=== PATIENT | female | born 1930 | race Caucasian/White ===

== ENCOUNTER 2018-01-14 22:00 | Emergency (ER) | payer MEDICARE ==
[~2018-01-14] VITALS: Ht 157.5 cm; Wt 70.0 kg
[2018-01-14 22:02] VITALS: BP 196/82; PULSE 90; RESP 18; TEMP 98.3; O2SAT 98
[2018-01-14] MEDS ORDERED: TETANUS/DIPHTHERIA TOXOID ADULT 0.5 ML VIAL IM ONE (23:30)
--- NOTE | 2018-01-14 23:43 | RADRPT ---
EXAM DATE/TIME: 01/14/2018 23:26 [facility] COMPARISON: No previous studies available for comparison. INDICATIONS : Trauma, fell and hit head. RADIATION DOSE: 36.07 CTDIvol (mGy) MEDICAL HISTORY : Hypertension. Cerebrovascular disease. SURGICAL HISTORY : None. ENCOUNTER: Initial ACUITY: 1 day PAIN SCORE: 3/10 LOCATION: facial TECHNIQUE: Volumetric scanning of the facial bones was performed. Using automated exposure control and adjustme nt of the mA and/or kV according to patient size, radiation dose was kept as low as reasonably achiev able to obtain optimal diagnostic quality images. DICOM format image data is available [employer] y for review and comparison. FINDINGS: ORBITS: The orbital and infraorbital osseous structures are intact. The retroconal structures have a normal configuration. No radiopaque foreign bodies are seen. NASAL BONE: The nasal bone and maxillary spine are intact ZYGOMATIC ARCHES: Symmetric without evidence of fracture. SINUSES: The maxillary, ethmoid and frontal sinuses are intact. No air-fluid levels seen. NASAL CAVITY: The nasal septum is intact and midline. The lacrimal ducts are intact. SOFT TISSUES: There is soft tissue swelling around the right orbit and below the nose. INTRACRANIAL: No intracranial air seen. CRIBIFORM PLATE: Grossly intact. CONCLUSION: Facial soft tissue contusions. No fracture. Giuseppe Burns MD on January 14, 2018 at 23:41 Board Certified Radiologist. This report was verified electronically.
--- NOTE | 2018-01-14 23:53 | RADRPT ---
EXAM DATE/TIME: 01/14/2018 23:26 [facility] COMPARISON: No previous studies available for comparison. INDICATIONS : Trauma, fell and hit head. RADIATION DOSE: 49.75 CTDIvol (mGy) MEDICAL HISTORY : Hypertension. Cerebrovascular disease. On plavix. SURGICAL HISTORY : None. ENCOUNTER: Initial ACUITY: 1 day PAIN SCALE: 2/10 LOCATION: cranial TECHNIQUE: Multiple contiguous axial images were obtained of the head. Using automated exposure control and adj ustment of the mA and/or kV according to patient size, radiation dose was kept as low as reasonably a chievable to obtain optimal diagnostic quality images. DICOM format image data is available electro nically for review and comparison. FINDINGS: CEREBRUM: The ventricles are normal for age. No evidence of midline shift, mass lesion, hemorrhage or acute in farction. No extra-axial fluid collections are seen. Atrophy and chronic-appearing low attenuation s een in the periventricular white matter. 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 POSTERIOR FOSSA: The cerebellum and brainstem are intact. The 4th ventricle is midline. The cerebellopontine angle i s unremarkable. EXTRACRANIAL: The visualized portion of the orbits is intact. SKULL: The calvaria is intact. No evidence of skull fracture. CONCLUSION: 1. No bleed or other acute intracranial abnormality. 2. Atrophy and chronic white matter changes. 3. 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 Giuseppe Burns MD on January 14, 2018 at 23:51 Board Certified Radiologist. This report was verified electronically.
[2018-01-15] MEDS ORDERED: LIDOCAINE 1%/EPINEPHrine 1:100,000 SOLN 30 ML VIAL ONE (00:29)
[2018-01-15] MEDS ORDERED: LIDOCAINE 1%/EPINEPHrine 1:100,000 SOLN 20 ML VIAL INFIL ONE (00:30)
[2018-01-15] MEDS ORDERED: MIRA3350 PO (00:41)
[2018-01-15] MEDS ORDERED: AMLO5TAB2 PO (00:41)
[2018-01-15] MEDS ORDERED: PRAV40TA2 PO (00:41)
[2018-01-15] MEDS ORDERED: ASPI-516 CHEW (00:41)
[2018-01-15] MEDS ORDERED: PLAV75TA29 PO (00:41)
[2018-01-15] MEDS ORDERED: METO25TA3 PO (00:41)
[2018-01-15] MEDS ORDERED: LISI10TA3 PO (00:41)
[2018-01-15] MEDS ORDERED: PANT40TA3 PO (00:41)
--- NOTE | 2018-01-15 00:57 | PD ---
HPI Chief Complaint: Head Injury Time Seen by Provider: 23:12 Travel History International Travel<30 days: No Contact w/Intl Traveler<30days: No Traveled to known affect area: No History of Present Illness HPI Patient is an 87-year-old female who slipped in the bathtub hit her right eyebrow on the bathtub porcelain JPTA ... no LOC no vomiting no post-trauma signs of intracranial injury . Pt comes in with a laceration to her right eyebrow upper outer 3 cm. no meds given and no other MD has seen for this injury [facility] Past Medical History Hx Anticoagulant Therapy: Yes (PLAVIX ) Cardiovascular Problems: Yes (HTN) High Cholesterol: Yes Cerebrovascular Accident: Yes Hypertension: Yes Social History Alcohol Use: No Tobacco Use: No Substance Use: No Allergies-Medications (Allergen,Severity, Reaction): Coded Allergies: No Known Allergies (Unverified , 01/14/18) Reported Meds & Prescriptions Reported Meds & Active Scripts Active Reported Miralax Powder (Polyethylene Glycol 3350 Powder) 17 Gm Powd 17 Gm PO DAILY Mix and dissolve one measuring cap-ful (17 grams) in water or juice. Aspirin 81 Mg Chew 81 Mg CHEW DAILY Lisinopril 10 Mg Tab 10 Mg PO BID Metoprolol Tartrate 25 Mg Tab 25 Mg PO BID Pravastatin 40 Mg Tab 40 Mg PO DAILY Amlodipine (Amlodipine Besylate) 5 Mg Tab 5 Mg PO DAILY Pantoprazole (Pantoprazole Sodium) 40 Mg Tab 40 Mg PO DAILY Plavix (Clopidogrel Bisulfate) 75 Mg Tab 75 Mg PO DAILY Physical Exam Narrative GENERAL: SKIN: 3 centimeter laceration to the right eyebrow HEAD: Atraumatic. Normocephalic. EYES: Pupils equal and round. No scleral icterus. No injection or drainage. Patient has a linear laceration 3 cm on the right upper outer part of her eyebrow her right eye has a clatter over her cornea she is blind in that eye she has range of motion intact ENT: No nasal bleeding or discharge. Mucous membranes pink and moist. NECK: Trachea midline. No JVD. CARDIOVASCULAR: Regular rate and rhythm. RESPIRATORY: No accessory muscle use. Clear to auscultation. Breath sounds equal bilaterally. GASTROINTESTINAL: Abdomen soft, non-tender, nondistended. Hepatic and splenic margins not palpable. MUSCULOSKELETAL: Extremities without clubbing, cyanosis, or edema. No obvious deformities. NEUROLOGICAL: Awake and alert. No obvious cranial nerve deficits. Motor grossly within normal limits. Five out of 5 muscle strength in the arms and legs. Normal speech. PSYCHIATRIC: Appropriate mood and affect; insight and judgment normal. Data Data Last Documented VS Vital Signs Date Time Temp Pulse Resp B/P (MAP) Pulse Ox O2 Delivery O2 Flow Rate FiO2 01/15/18 01:15 01/14/18 23:11 Room Air 01/14/18 22:02 98.3 90 [address] Brain W/O Iv Contrast(Rout) (01/14/18 ) Ct Facial Bones W/O Iv Cont (01/14/18 ) Tetanus/Diphtheria Tox Adult (Tetanus/Di (01/14/18 23:30) Lidocai-Epi 1%-1:100,000 Inj (Xylocaine- (01/15/18 00:30) Lidocai-Epi 1%-1:100,000 Inj (Xylocaine- (01/15/18 00:29) Ed Discharge Order (01/15/18 01:07) MDM Medical Decision Making Medical Screen Exam Complete: Yes Emergency Medical Condition: Yes Differential Diagnosis laceration to right eyebrow vs intracranial injury fractures skull Narrative Course CT neg for fracture nor bleed intracranial lac repaired by this MD and bacitracin applied and d/c for five day removal of suutres Procedures Procedure Narrative Laceration repair to the right eyebrow sterile technique used 5. 0 nylon 5 sutures are placed in the right upper eyebrow after irrigation and Betadine preparation anesthetized with 1% with epi good anesthesia 5. 0 interrupted sutures. Good wound approximation tolerated well tetanus updated Diagnosis Primary Impression: Laceration of right eyebrow Qualified Codes: S01.111A - Laceration without foreign body of right eyelid and periocular area, initial encounter Additional Impression: Fall Qualified Codes: W19.XXXA - Unspecified fall, initial encounter Patient Instructions: Facial Laceration (ED), General Instructions Additional Instructions: Patient needs to return to the ER to have her sutures removed in 5 days or follow-up with your primary care doctor to have sutures removed Disposition: 01 DISCHARGE HOME Condition: Leonel Noel MD Jan 15, 2018 00:57
== END 2018-01-15 01:47 | disposition home or self-care (01) ==
LOC: NEPE 22:00
DX: S01.111A Laceration without foreign body of right eyelid and periocular area, initial encounter (principal); I10 Essential (primary) hypertension; E78.00 Pure hypercholesterolemia, unspecified; Z86.73 Personal history of transient ischemic attack (TIA), and cerebral infarction without residual deficits; Z23 Encounter for immunization; Z79.82 Long term (current) use of aspirin; Z79.02 Long term (current) use of antithrombotics/antiplatelets; Z79.899 Other long term (current) drug therapy; W18.2XXA Fall in (into) shower or empty bathtub, initial encounter
CPT/HCPCS: 12013; 70450; 70486; 90471; 90714